=== PATIENT | male | born 1950 | race Caucasian/White ===

== ENCOUNTER → 2024-10-03 11:37 | Outpatient (CLI) | payer MEDICARE, SELFPAY ==
--- NOTE | 2024-10-03 11:41 | DI.MRI.S_ITS ---
PROCEDURE: MR KNEE RT WO CON INDICATIONS: OSTEONECROSIS TECHNIQUE: Noncontrast sagittal PD fast spin echo and T2 fast spin echo with fat saturation, sagittal 3-D FLASH with fat saturation; coronal T1 spin echo and PD fast spin echo with fat saturation, and axial PD fast spin echo with fat saturation through the knee. COMPARISON: None. FINDINGS: Image quality: Excellent. Bones and cartilage: The most significant finding is a 3.0 cm AP by 1.2 cm transverse by 0.6 cm cc area of low T1 high T2 mixed signal, subchondral edema in an area of diffuse cartilaginous thinning in the medial aspect of the medial femoral condyle suggestive of osteochondral defect, osteonecrosis without significant collapse and without definitive associated intra-articular loose body or fragmentation. [id number] degenerative changes with osteophytes in the medial greater than lateral greater than patellofemoral compartments mild chondromalacia patella most notably of the medial patellar facet with mild approximately 1 cm lateral subluxation of the patella on the axial images. Otherwise no MR evidence of fracture line or other areas of bone edema. Menisci: Marked diffuse maceration/degeneration of the medial meniscus which is extruded medially on the coronal images. Complex tear involving the midbody and extending into the anterior and posterior horns with frayed edges. Meniscocapsular separation posterior-laterally, medially. The lateral meniscus appears grossly intact without focal signal to suggest tear. Cruciate ligaments: The anterior and posterior cruciate ligaments appear intact. Medial structures: Mild increased T2 weighted signal surrounding the medial collateral ligament without tear likely mild grade 1 injury/strain. Mild increased T2 weighted signal and thickening of the distal semimembranosus tendon and posterior oblique ligament. Mild increased medial, pes anserine bursal fluid. Visualized portions of the pes anserinus tendons appear otherwise normal. Lateral structures: 9 mm diameter round fabella or other calcific density posterior to the lateral femoral condyle. Mild increased T2 weighted signal and thickening of the distal popliteus tendon, tendinopathy /strain. The lateral collateral ligament, long and short heads of the biceps femoris tendon appear intact. Iliotibial band appears normal. Anterior structures: The quadriceps and patellar tendons appear intact. No edema in the infrapatellar fat pad. Joint space: Moderate to large joint effusion. No significant popliteal cyst. IMPRESSION: Abnormal appearance in the medial femoral condyle articular surface with diffuse cartilage loss, subchondral edema, osteochondral defect/osteonecrosis or other process. Follow-up is needed [id number] degenerative changes in the medial compartment. Maceration/degeneration medial meniscus as discussed above. Mild injury/strain of a few tendons/ligaments as discussed above. Moderate to large knee joint effusion. Dictated by: Wilmer Ricardo M.D. on 10/04/2024 at 11:22 Approved by: Wilmer Ricardo M.D. on 10/04/2024 at 12:56
== END ==
LOC: MRI 11:39
PROVIDERS: PCP Family Medicine; Referring Provider Family Medicine; Visit Provider Orthopaedic Surgery
DX: M22.41 Chondromalacia patellae, right knee (principal); S83.231A Complex tear of medial meniscus, current injury, right knee, initial encounter; M25.561 Pain in right knee; M25.461 Effusion, right knee; X58.XXXA Exposure to other specified factors, initial encounter
CPT/HCPCS: 73721